=== PATIENT | male | born 1955 | race Caucasian/White ===

== ENCOUNTER 2017-04-20 09:55 | Observation (INO) | payer MEDICARE ==
[2017-04-20] MEDS ORDERED: NS 0.9% 1000 ML* 1,000 ML IV ONE (10:06)
[2017-04-20 10:15] LABS: ABS Basophils 0.1 10^3/ul (0-0.2); ABS Eosinophils 0.5 10^3/ul (0-0.6); ABS Lymphocytes 4.5 10^3/ul (1.0-4.8); ABS Monocytes 0.8 10^3/ul (0-0.8); ABS Neutrophils 4.8 10^3/ul (1.5-7.7); ABS Nucleated RBC 0 10^3/ul; Eosinophil % 5.1 % (0-6); Hematocrit 47 % (42-52); Hemoglobin 15.6 g/dl (14.0-18.0); Lymphocyte % 41.7 % (25-47); Mean Corpuscular HGB Conc 33 g/dl (31-36); Mean Corpuscular Hemoglobin 31 pg (27-31); Mean Corpuscular Volume 92 fL (80-94); Mean Platelet Volume 7 um3 (7.4-10.4); Nucleated Red Blood Cells % 0.1; Platelet Count 220 10^3/ul (150-450); Red Blood Count 5.12 10^6/ul (4.0-5.4); Red Cell Distribution Width 14 % (10.5-15); White Blood Count 10.8 10^3/ul (3.5-10.8)
--- NOTE | 2017-04-20 10:26 | RAD ---
INDICATION: Left leg weakness and inability to see out of left eye COMPARISON: None. TECHNIQUE: Contiguous axial sections of the brain were obtained from the skull base to the vertex without contrast. FINDINGS: The ventricles, cisterns and sulci are within normal limits. The swann-white matter differentiation is adequately maintained and there is no sulcal effacement. No significant focal abnormality or mass effect is present. There is no evidence for intracranial hemorrhage. No significant focal osseous abnormality is present. There is very mild mucosal thickening of the right maxillary sinus. The mastoid air cells are well aerated bilaterally. IMPRESSION: No CT evidence of acute territorial infarction or intracranial hemorrhage. Findings were reported to Dr. Quijano over the telephone at 1022 hours on April 20, 2017.
[2017-04-20 10:29] LABS: INR 0.9 (0.77-1.02)
[2017-04-20 10:30] LABS: EGFR Non-African American 66.9 (>60)
[2017-04-20] MEDS ORDERED: Aspirin Low Dose CHEW TAB* 81 MG PO ONE (10:45)
[2017-04-20] MEDS ORDERED: Iohexol 350* (CONTRAST) 500 ML MDV IV ONE (10:55)
--- NOTE | 2017-04-20 11:05 | RAD ---
INDICATION: Weakness and left eye visual impairment COMPARISON: Most recent comparison chest x-rays dated November 13, 2007 TECHNIQUE: Single AP portable view of the chest was obtained. FINDINGS: Image quality is compromised due to the relative inferiority of a portable chest x-ray. The heart and mediastinum exhibit normal size and contour. Again seen overlying the right lung apex there is an area that is mostly absent of lung markings. The morphology of this finding is consistent with a air cyst or subpleural bulla. The lungs are otherwise adequately aerated. There is no evidence of a large pleural effusion. Visualized bones are normal for the patient's age. 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 Otherwise there are no radiographically apparent acute cardiopulmonary abnormalities.
--- NOTE | 2017-04-20 11:55 | RAD ---
CPT II: CPT II Codes: 3100F INDICATION: Left leg weakness and left vision loss COMPARISON: Same day noncontrast CT of the brain TECHNIQUE: A CT angiogram of the head and neck was performed with 80 cc of Omnipaque 350. Contiguous axial sections were obtained from the thoracic inlet through the [place]. Images were reconstructed in the sagittal, coronal planes and in a 3-D volume rendered format. The distal cervical internal carotid artery diameter is used as the denominater for stenosis measurement. CTA NECK: The common and internal carotid arteries are patent without hemodynamically significant stenosis. Right: Below the bifurcation the common carotid artery measures 8 mm in short axis diameter. There is mixed attenuation atherosclerosis at the carotid bulb extending into the lower portion of the right internal carotid artery narrowing the lumen of the internal carotid artery to just under 4 mm. This corresponds to approximately 50% degree stenosis. Left: Below the carotid bifurcation the short axis diameter of the common carotid artery is 7 mm. There is mostly calcified mixed attenuation atherosclerosis at the left carotid bulb narrowing the lumen to approximately 3.6 mm in diameter. This corresponds to 50% degree stenosis. The right vertebral artery is diminutive relative to the left but patent. The vertebral arteries are patent without gross abnormality. CTA of the brain: The internal carotid, anterior and middle cerebral arteries appear are patent without high grade stenosis or occlusion. The vertebral, basilar and posterior cerebral arteries appear patent without high grade stenosis or occlusion. The [place] is complete with bilateral posterior communicating arteries identified. No focal luminal filling defect, aneurysm or vascular malformation is seen. NON-ARTERIAL FINDINGS: Corresponding to prior chest x-ray imaging there is a partially visualized large bulla at the right lung apex. IMPRESSION: 1. Mixed attenuation atherosclerosis at the bilateral carotid bulbs causes approximately 50% degree narrowing bilaterally. 2. There is no focal cervical or intracranial arterial occlusion or other acute abnormality.
[2017-04-20 12:01] LABS: Urine Appearance Clear; Urine Blood Negative (Negative); Urine Color Straw; Urine Ketones Negative (Negative); Urine Protein Negative (Negative); Urine Specific Gravity 1.013 (1.010-1.030); Urine Urobilinogen Negative (Negative)
[2017-04-20] MEDS ORDERED: Ondansetron INJ* 2 MG/ML VIAL IV PRN (13:53)
[2017-04-20] MEDS ORDERED: Acetaminophen TAB* 325 MG PO PRN (13:53)
[2017-04-20] MEDS ORDERED: LORazepam INJ* 2 MG/ML 1 ML VIAL IV PUSH PRN (15:11)
[2017-04-20] MEDS ORDERED: methylPREDNISolone SOD SUCC* 1000 MG ML VIAL IVPB ONE (15:57)
[2017-04-20] MEDS: Heparin VIAL(*) 5000 UNITS/ML VIAL (FIVE THOUSAND) SUBCUT SCH ×2 (16:02→20:42)
[2017-04-20] MEDS ORDERED: methylPREDNISolone SOD SUCC* 1,000 MG in NS 0.9% 250 ML* 250 ML IVPB ONE (17:00)
--- NOTE | 2017-04-20 17:36 | HP ---
CC: Dr. Stockton; Dr. Gonzalez * HISTORY AND PHYSICAL: DATE OF ADMISSION: 04/20/17 PRIMARY CARE PROVIDER: Dr. Stockton. ATTENDING PHYSICIAN WHILE IN THE HOSPITAL: Dr. Kristin Ramirez * (report dictated by Abraham Hendricks NP) CHIEF COMPLAINT: 1. Left eye visual loss. 2. Left leg weakness. HISTORY OF PRESENT ILLNESS: Mr. Warner is a 61-year-old male patient, who has a history of rheumatoid arthritis, has a history of hypertension, hyperlipidemia , and he is a heavy smoker. He comes in to our ER today, stating that around 9: 30 to 9:50 this morning, he had a sudden onset of left visual loss in his entire eye. He says he could see just the center like he was looking through a pinhole is what he said. It lasted for a couple of hours. Apparently, when he came into the ED, he had left leg weakness. When I asked him if he had any unilateral weakness he declined, but the ED did note that his left leg was weak. He says he just felt off, he felt lightheaded and dizzy. He says he did not have an unsteady gait. He denied any slurring of the word, denied having facial drooping. He said that his vision just was not getting any better and he knew that there was something wrong, so he came into the ER to be evaluated today. He denied having any recent change of medication. He said a couple of years ago, he stopped taking his cholesterol meds. He denies having any chest pain or shortness of breath. No palpitations. No recent fevers or chills. No rhinorrhea or sore throat. Dorota Rahul was called because he presented about an hour after his symptoms, but while he was here, his vision improved and the weakness in his leg improved, so tPA was not given, but because of the concern for possible TIA, we were asked to evaluate for admission. PAST MEDICAL HISTORY: Significant for: 1. Rheumatoid arthritis. 2. Hypertension. 3. Hyperlipidemia. PAST SURGICAL HISTORY: 1. The patient has had C-spine surgery. 2. He has had right wrist surgery. MEDICATIONS: The home meds include: 1. Metoprolol 25 mg daily. 2. Methotrexate 12.5 mg p.o. weekly. 3. Prednisone 5 mg daily. ALLERGIES TO MEDICATIONS: Include no known drug allergies. FAMILY HISTORY: His mother is still alive with no medical problems. Father had history of lung cancer. SOCIAL HISTORY: He is a smoker for about 40 years. He smoked half a pack to a pack a day. He does not drink alcohol. Surrogate decision maker is his . REVIEW OF SYSTEMS: There is no documented fever. He denied having any significant weight change. There was no double vision. There is no ear discharge. He denies having any rhinorrhea. There is no sore throat. There is no thyroid enlargement. Denied having any chest pain. There was no orthopnea. There was no nocturnal dyspnea. He denies having any abdominal discomfort. There is no dysuria, there is no frequency. He denied any seizure or loss of consciousness. No pruritus and no skin ulcerations. Review of 14 systems completed, all others negative. PHYSICAL EXAMINATION GENERAL: At this time, Mr. Warner is a 61-year-old male patient. He appears to be well nourished and well developed. He does not appear to be in any acute distress. VITAL SIGNS: Blood pressure 165/91, pulse 76, respirations 18, O2 sat 97%, temperature 98.4. HEENT: Head: Atraumatic, normocephalic. Eyes: EOMs intact. Sclerae anicteric and not pale. Throat: Oral mucosa appears to be moist. No oropharyngeal erythema. NECK: Supple. LUNGS: Clear to auscultation bilaterally. No wheezes, rales, or rhonchi. HEART: Sounds S1, S2. Regular rate and rhythm. No murmurs, rubs, or gallops. ABDOMEN: Soft, it was flat. It was nontender. The bowel sounds were present. EXTREMITIES: Pulses were 2+ throughout. He is moving all 4 extremities with 5/ 5 strength. He does have a little bit of weakness with plantar and dorsiflexion to the right foot, but he says this is chronic. Pulses were 2+ throughout and no peripheral edema. 5/5 strength. NEUROLOGIC: His speech was clear. His tongue was midline. [id number] was intact. Awake, alert, and oriented x3. Cranial nerves II through XII were intact, no gross focal deficits. His vision was intact at this point. No focal deficits were elicited on my exam. SKIN: Intact. DIAGNOSTIC STUDIES/LAB DATA: WBC of 10.8, RBC of 5.12, hemoglobin of 15.6, hematocrit of 47, platelet count of 220. INR was 0.90, PTT was 29.6. Sodium 139, potassium 3.7, chloride of 102, bicarb 27, BUN 15, creatinine 1.12, glucose 131, lactate 4.9, calcium 9.9. Total bili 0.5, AST 22, ALT 19, alk phos . Troponin 0. Albumin 4.3. His LDL was 150. Urine was negative. He did have imaging here in the ED starting with brain CT, impression: No CT evidence of acute territorial infarction or intracranial hemorrhage. He did have a CTA mixed attenuation atherosclerosis at the bilateral carotid bulb causes approximately 50% stenosis bilaterally. There is no focal cervical, intracranial arterial occlusion, or other acute abnormality. He did have a chest x-ray obtained today. 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 There was an EKG obtained today, which did show a normal sinus rhythm, rate of 74. No ST elevations or T-wave inversions. It is reviewed to the previous EKG, it does appear to be similar. Old medical records were reviewed. ASSESSMENT AND PLAN: Mr. Warner is a 61-year-old male patient, coming into the ED today with complaints of left-sided visual loss. We were asked to evaluate for admission. He will be admitted under observation status for: 1. Transient ischemic attack. At this point, Dr. Gonzalez will be evaluating the patient. He was evaluated by [facility]. I will refer you to their consult for details. The plan will be to go ahead and put the patient on aspirin, possibly Plavix, but Dr. Gonzalez will evaluate. We will go ahead and get him back on his statin. Check lipids in the morning. A1c, neuro checks every 2 hours, get an echo with bubble study. In addition to this, MRI of the brain when it is available. 2. Hypertension in the setting of possible transient ischemic attack versus an acute stroke. We will go ahead and allow for permissive hypertension. We will hold his beta sly. 3. Hyperlipidemia. We will continue his statin therapy, which he had stopped about a year ago. We will check his lipid panel. 4. Rheumatoid arthritis. Continue meds as prescribed. 5. DVT prophylaxis. He is high risk. Place him on heparin subcu. 6. Code status. Full code. 7. Fluid, electrolytes, and nutrition. He can have a regular diet. TIME SPENT: On the admission was 60 minutes, greater than half the time was spent [id number] with the patient obtaining my history and physical; the other half time was spent going over the plan of care with the patient and implementing plan of care. I did discuss the plan of care with my attending, Dr. Ramirez; she is in agreement. ABRAHAM HENDRICKS, NENA [id number]/CPS #: [id number] [facility]
--- NOTE | 2017-04-20 18:16 | ED ---
Didier Clark Nikita, scribed for Jose Quijano MD on 04/20/17 at 1012 . Neurological HPI - HPI Summary HPI Summary: This patient is a 61 year old M presenting to ED with a chief complaint of possible CVA since 914. The patient rates the pain 0/10 in severity. Symptoms aggravated by nothing. Symptoms alleviated by nothing. Patient reports dizziness , loss of vision in the L eye, HTN, generalized weakness, and CP. Patient denies numbness. RACHEL FIGUEROA called at 1004 - History of Current Complaint Stated Complaint: POSSIBLE HEART ATTACK Hx Obtained From: Patient Onset/Duration: Sudden Onset, Started hours ago, Still Present Timing: Constant Current Severity: None Pain Intensity: 0 Pain Scale Used: 0-10 Numeric Character: Other: - Patient reports dizziness, loss of vision in the L eye, HTN , generalized weakness, and CP. Patient denies numbness. Aggravating: Nothing Alleviating: Nothing - Allergy/Home Medications Allergies/Adverse Reactions: Allergies Allergy/AdvReac Type Severity Reaction Status Date / Time No Known Allergies Allergy Verified 04/20/17 10:21 Home Medications: Home Medications Methotrexate TAB* 12.5 mg PO WEEKLY 04/20/17 [History Confirmed 04/20/17] Metoprolol Tartrate TAB* [Lopressor TAB*] 25 mg PO DAILY 04/20/17 [History Confirmed 04/20/17] predniSONE TAB* [Deltasone TAB*] 5 mg PO DAILY 04/20/17 [History Confirmed 04/20] PMH/Surg Hx/FS Hx/Imm Hx Cardiovascular History: Reports: Hx Hypertension, Hx Myocardial Infarction Musculoskeletal History: Reports: Hx Rheumatoid Arthritis - Family History Known Family History: Negative: Cardiac Disease, Hypertension, Diabetes - Social History Alcohol Use: None Hx Substance Use: No Hx Tobacco Use: Yes Review of Systems Positive: Other - loss of vision in L eye Positive: Chest Pain, Other - HTN Neurological: Other - dizziness; denies numbness Positive: Weakness - generalized All Other Systems Reviewed And Are Negative: Yes Physical Exam - Summary Physical Exam Summary: RACHEL FIGUEROA called at 1004 VITAL SIGNS: Reviewed. GENERAL: ~Patient is a well-developed and nourished MALE who is lying comfortable in the stretcher. ~Patient is not in any acute respiratory distress. HEAD AND FACE: No signs of trauma. ~No ecchymosis, hematomas or skull depressions. No sinus tenderness. EYES: Pt cannot see out of the L eye. EARS: Hearing grossly intact. Ear canals and tympanic membranes are within normal limits. MOUTH: Oropharynx within normal limits. NECK: Supple, trachea is midline, no adenopathy, no JVD, no carotid bruit, no c- spine tenderness, neck with full ROM. No meningeal signs, no Kernig's or brudzinskis signs. CHEST: Symmetric, no tenderness at palpation LUNGS: Clear to auscultation bilaterally. No wheezing or crackles. CVS: Regular rate and rhythm, S1 and S2 present, no murmurs or gallops appreciated. ABDOMEN: Soft, non-tender. No signs of distention. No rebound no guarding, and no masses palpated. Bowel sounds are normal. EXTREMITIES: Slight weakness in the L leg, no edema, no cyanosis or clubbing. NEURO: Alert and oriented x 3. No acute neurological deficits. Speech is normal and follows commands. SKIN: Dry and warm GCS: 15 Triage Information Reviewed: Yes Vital Signs On Initial Exam: Initial Vitals Temp Pulse Resp BP Pulse Ox 98.4 F 79 16 197/80 96 04/20/17 10:02 04/20/17 10:02 04/20/17 10:02 04/20/17 10:02 04/20/17 10:02 Vital Signs Reviewed: Yes Diagnostics - Vital Signs Vital Signs Temp Pulse Resp BP Pulse Ox 04/20/17 13:00 51 20 124/80 95 04/20/17 12:30 58 21 126/76 95 04/20/17 12:00 64 18 147/79 97 04/20/17 11:30 74 19 141/106 97 04/20/17 11:00 61 15 165/91 96 04/20/17 10:30 66 17 165/88 95 04/20/17 10:20 73 22 97 04/20/17 10:19 96 04/20/17 10:18 167/96 04/20/17 10:02 98.4 F 79 16 197/80 96 - Laboratory Lab Results: Lab Results 04/20/17 04/20/17 04/20/17 Range/Units 10:07 10:07 10:07 WBC 10.8 (3.5-10.8) 10^3/ul RBC 5.12 (4.0-5.4) 10^6/ul Hgb 15.6 (14.0-18.0) g/dl Hct 47 (42-52) % MCV 92 (80-94) fL MCH 31 (27-31) pg MCHC 33 (31-36) g/dl RDW 14 (10.5-15) % Plt Count 220 (150-450) 10^3/ul MPV 7 L (7.4-10.4) um3 Neut % (Auto) 44.5 (38-83) % Lymph % (Auto) 41.7 (25-47) % Highland % (Auto) 7.7 (1-9) % Eos % (Auto) 5.1 (0-6) % Baso % (Auto) 1.0 (0-2) % Absolute Neuts (auto) 4.8 (1.5-7.7) 10^3/ul Absolute Lymphs (auto) 4.5 (1.0-4.8) 10^3/ul Absolute Monos (auto) 0.8 (0-0.8) 10^3/ul Absolute Eos (auto) 0.5 (0-0.6) 10^3/ul Absolute Basos (auto) 0.1 (0-0.2) 10^3/ul Absolute Nucleated RBC 0 10^3/ul Nucleated RBC % 0.1 INR (Anticoag Therapy) 0.90 (0.77-1.02) APTT 29.6 (26.0-36.3) seconds Sodium 139 (133-145) mmol/L Potassium 3.7 (3.5-5.0) mmol/L Chloride 102 (101-111) mmol/L Carbon Dioxide 27 (22-32) mmol/L Anion Gap 10 (2-11) mmol/L BUN 15 (6-24) mg/dL Creatinine 1.12 (0.67-1.17) mg/dL Est GFR ( Amer) 86.0 (>60) Est GFR (Non-Af Amer) 66.9 (>60) BUN/Creatinine Ratio 13.4 (8-20) Glucose 131 H (70-100) mg/dL POC Glucose (mg/dL) (70-100) mg/dL Lactic Acid (0.5-2.0) mmol/L Calcium 9.9 (8.6-10.3) mg/dL Total Bilirubin 0.50 (0.2-1.0) mg/dL AST 23 (13-39) U/L ALT 19 (7-52) U/L Alkaline Phosphatase 78 (34-104) U/L Troponin I 0.00 (<0.04) ng/mL Total Protein 8.3 (6.4-8.9) g/dL Albumin 4.3 (3.2-5.2) g/dL Globulin 4.0 (2-4) g/dL Albumin/Globulin Ratio 1.1 (1-3) Triglycerides 120 mg/dL Cholesterol 217 mg/dL LDL Cholesterol 150 mg/dL HDL Cholesterol 42.9 mg/dL Urine Color Urine Appearance Urine pH (5-9) Ur Specific [place]ville (1.010-1.030) Urine Protein (Negative) Urine Ketones (Negative) Urine Blood (Negative) Urine Nitrate (Negative) Urine Bilirubin (Negative) Urine Urobilinogen (Negative) Ur Leukocyte Esterase (Negative) Urine Glucose (Negative) Blood Type Antibody Screen 04/20/17 04/20/17 04/20/17 Range/Units 10:07 10:07 10:11 WBC (3.5-10.8) 10^3/ul RBC (4.0-5.4) 10^6/ul Hgb (14.0-18.0) g/dl Hct (42-52) % MCV (80-94) fL MCH (27-31) pg MCHC (31-36) g/dl RDW (10.5-15) % Plt Count (150-450) 10^3/ul MPV (7.4-10.4) um3 Neut % (Auto) (38-83) % Lymph % (Auto) (25-47) % Highland % (Auto) (1-9) % Eos % (Auto) (0-6) % Baso % (Auto) (0-2) % Absolute Neuts (auto) (1.5-7.7) 10^3/ul Absolute Lymphs (auto) (1.0-4.8) 10^3/ul Absolute Monos (auto) (0-0.8) 10^3/ul Absolute Eos (auto) (0-0.6) 10^3/ul Absolute Basos (auto) (0-0.2) 10^3/ul Absolute Nucleated RBC 10^3/ul Nucleated RBC % INR (Anticoag Therapy) (0.77-1.02) APTT (26.0-36.3) seconds Sodium (133-145) mmol/L Potassium (3.5-5.0) mmol/L Chloride (101-111) mmol/L Carbon Dioxide (22-32) mmol/L Anion Gap (2-11) mmol/L BUN (6-24) mg/dL Creatinine (0.67-1.17) mg/dL Est GFR ( Amer) (>60) Est GFR (Non-Af Amer) (>60) BUN/Creatinine Ratio (8-20) Glucose (70-100) mg/dL POC Glucose (mg/dL) 122 H (70-100) mg/dL Lactic Acid 4.9 H* (0.5-2.0) mmol/L Calcium (8.6-10.3) mg/dL Total Bilirubin (0.2-1.0) mg/dL AST (13-39) U/L ALT (7-52) U/L Alkaline Phosphatase (34-104) U/L Troponin I (<0.04) ng/mL Total Protein (6.4-8.9) g/dL Albumin (3.2-5.2) g/dL Globulin (2-4) g/dL Albumin/Globulin Ratio (1-3) Triglycerides mg/dL Cholesterol mg/dL LDL Cholesterol mg/dL HDL Cholesterol mg/dL Urine Color Urine Appearance Urine pH (5-9) Ur Specific [place] (1.010-1.030) Urine Protein (Negative) Urine Ketones (Negative) Urine Blood (Negative) Urine Nitrate (Negative) Urine Bilirubin (Negative) Urine Urobilinogen (Negative) Ur Leukocyte Esterase (Negative) Urine Glucose (Negative) Blood Type A Negative Antibody Screen Negative 04/20/17 Range/Units 11:52 WBC (3.5-10.8) 10^3/ul RBC (4.0-5.4) 10^6/ul Hgb (14.0-18.0) g/dl Hct (42-52) % MCV (80-94) fL MCH (27-31) pg MCHC (31-36) g/dl RDW (10.5-15) % Plt Count (150-450) 10^3/ul MPV (7.4-10.4) um3 Neut % (Auto) (38-83) % Lymph % (Auto) (25-47) % Highland % (Auto) (1-9) % Eos % (Auto) (0-6) % Baso % (Auto) (0-2) % Absolute Neuts (auto) (1.5-7.7) 10^3/ul Absolute Lymphs (auto) (1.0-4.8) 10^3/ul Absolute Monos (auto) (0-0.8) 10^3/ul Absolute Eos (auto) (0-0.6) 10^3/ul Absolute Basos (auto) (0-0.2) 10^3/ul Absolute Nucleated RBC 10^3/ul Nucleated RBC % INR (Anticoag Therapy) (0.77-1.02) APTT (26.0-36.3) seconds Sodium (133-145) mmol/L Potassium (3.5-5.0) mmol/L Chloride (101-111) mmol/L Carbon Dioxide (22-32) mmol/L Anion Gap (2-11) mmol/L BUN (6-24) mg/dL Creatinine (0.67-1.17) mg/dL Est GFR ( Amer) (>60) Est GFR (Non-Af Amer) (>60) BUN/Creatinine Ratio (8-20) Glucose (70-100) mg/dL POC Glucose (mg/dL) (70-100) mg/dL Lactic Acid (0.5-2.0) mmol/L Calcium (8.6-10.3) mg/dL Total Bilirubin (0.2-1.0) mg/dL AST (13-39) U/L ALT (7-52) U/L Alkaline Phosphatase (34-104) U/L Troponin I (<0.04) ng/mL Total Protein (6.4-8.9) g/dL Albumin (3.2-5.2) g/dL Globulin (2-4) g/dL Albumin/Globulin Ratio (1-3) Triglycerides mg/dL Cholesterol mg/dL LDL Cholesterol mg/dL HDL Cholesterol mg/dL Urine Color Straw Urine Appearance Clear Urine pH 6.0 (5-9) Ur Specific [place] 1.013 (1.010-1.030) Urine Protein Negative (Negative) Urine Ketones Negative (Negative) Urine Blood Negative (Negative) Urine Nitrate Negative (Negative) Urine Bilirubin Negative (Negative) Urine Urobilinogen Negative (Negative) Ur Leukocyte Esterase Negative (Negative) Urine Glucose Negative (Negative) Blood Type Antibody Screen Result Diagrams: 04/20/17 10:07 04/20/17 10:07 Lab Statement: Any lab studies that have been ordered have been reviewed, and results considered in the medical decision making process. - Radiology CXR Radiology Interpretation Completed By: Radiologist - Chronic right lung apex bulla or large cyst similar in appearance to the November 13, 2007 chest x-ray. Otherwise there are no radiographically apparent acute cardiopulmonary abnormalities. ED physician has reviewed this radiology report. - CT Brain CT CT Interpretation Completed By: Radiologist - Negative for any acute pathology. ED physician has reviewed this radiology report. CTA Head/Neck CT Interpretation Completed By: Radiologist - 1. Mixed attenuation atherosclerosis at the bilateral carotid bulbs causes approximately 50% degree narrowing bilaterally. 2. There is no focal cervical or intracranial arterial occlusion or other acute abnormality. ED physician has reviewed this radiology report. 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 Facial Paresis-Pt to Smile & Close Eyes or Grimace Symmetry: Normal/Symmetrical Motor Function - Right Arm: No Drift-Holds 10 Seconds Motor Function - Left Arm: No Drift-Holds 10 Seconds Motor Function - Right Leg: No Drift-Holds 10 Seconds Motor Function - Left Leg: No Drift-Holds 10 Seconds Limb Ataxia-Must be out of Proportion to Weakness Present: Absent Sensory (Use Pinprick to Test Arms/Legs/Trunk/Face): Normal Best Language (Describe Picture, Name Items): No Aphasia Dysarthria (Read Several Words): Normal Extinction and Inattention: No Abnormality Total Score: 2 Re-Evaluation - Re-Evaluation First Eval Re-Evaluation Time: 10:38 Comment: The pt's weakness is gone. The pt can see a bit more and the visual acuity of the R is 20/30, for the L is 20/200, and bilateral is 20/25. Second Eval Re-Evaluation Time: 12:50 Change: Improved Comment: The pt is feeling a lot better. Course/Dx - Course Assessment/Plan: RACHEL FIGUEROA called at 1004. This patient is a 61 year old M presenting to ED with a chief complaint of possible CVA since 914. Initially, as soon as the pt arrived, a code shree was called since he had neurological deficit. A quick NIH score was done and was equal to 2. Test results are without significant abnormalities except lactic acid of 4.9 and glucose 131. Urinalysis is negative for a UTI. Discussed with Dr. Harris from [facility] who requested a CTA and a teleconference with the pt. After teleconference at 1127 and CTA results, he recommended for pt to be admitted to the hospital here. No TPA since sx are improving. ASA and simvastatin, a neuro consult, and MRI without contrast and Q4 hours neuro checks. I discussed with Dr. Gonzalez who will consult for the patient. Discussed with Dr. Robin who accepted the patient for admission. Patient symptoms are improving. He is hemodynamically stable, alert and oriented x3. - Differential Dx Differential Diagnoses Neuro: Positive: Benign Paroxysmal Positional Vertigo, Cerebrovascular Accident, Seizure Disorder, Transient Ischemic Attack, Other - amaurosis fugax - Diagnoses Provider Diagnoses: Amaurosis fugax During the Visit The Following Alert/Code Occurred: Rachel Kaye - called at 1004 - Physician Notifications Discussed Care Of Patient With: Gio Harris Time Discussed With Above Provider: 10:39 Instructed by Provider To: Other - Consulted Dr. Harris in [facility] who says to take a CTA of the head and neck. No TPA at this time. Dr. Quijano will call back with the results. Only ASA at this point. Consulted Dr. Harris at 1255 who wants to admit the pt to the hospitalist, give the pt ASA and simvastatin, a neuro consult, and MRI without contrast and Q4 hours neuro checks. No TPA. Consulted Dr. Robin at 1312 who accepts the pt for admission. - Critical Care Time Critical Care Time: 75-104 min Discharge - Discharge Plan Condition: Stable Disposition: ADMITTED TO [facility] documentation as recorded by the Didier chery Nikita accurately reflects the service I personally performed and the decisions made by , Jose Quijano MD.
--- NOTE | 2017-04-21 01:26 | CONS ---
NEUROLOGY CONSULTATION: DATE OF CONSULT: 04/20/17 LOCATION: He is in room 451. REFERRING PROVIDER: Abraham Hendricks NP CHIEF COMPLAINT: Transient visual loss. HISTORY OF PRESENT ILLNESS: Otto Warner is a 61-year-old right-handed man who was in his usual state of health this morning at about 9 o'clock when he noted visual loss in his left eye. It came on fairly abruptly or at least over a couple of minutes and resulted in almost a pinhole vision out of his left eye. It was his left eye only and he could see perfectly well out of his right eye. It gradually improved. He came into the emergency room. He still had some blurriness of his vision, but it was much better than when it started. Over the course of about 2 hours, it was much better. However, as I evaluated him approximately 5 to 6 hours after onset of symptoms, he said it is still not back to normal. It had been fluctuating on and off for the last several hours. At first, he said there was some blurriness of vision in his right upper quadrant or more towards the center, not completely into the periphery. Over multiple evaluations over the last hour and a half to 2 hours, he said at times he feels his vision is normal and at times he feels there is some blurriness in the right paracentral area. Again, it only involves his left eye and his right eye feels fine. He has not had any problems with headaches or eye pain. No jaw pain or pain with chewing. He has not had any recent sweats, chills, or weight loss. He has had no change in his general health recently. He is on chronic prednisone therapy 5 mg a day which has been on for over year for rheumatoid arthritis and also takes methotrexate for the same. He has hypertension, he smokes, and although he has no history of diabetes, his glucose is 131 at presentation. He also has hyperlipidemia based on his labs, but he has not been on any medicine at home for that. PAST MEDICAL HISTORY: Notable for chest pain, which was evaluated with a cardiac catheterization many years ago with mild circumflex disease. He has rheumatoid arthritis, chronic back pain without footdrop, ongoing tobacco smoker. He has a history of gastroesophageal reflux. He has had cervical spine surgery. MEDICATIONS: Medications at home include: 1. Metoprolol 25 mg p.o. daily. 2. Methotrexate 12.5 mg p.o. weekly. 3. Prednisone 5 mg daily. 4. He used to be on statin, but he has not been taking it for years. 5. He used to take daily aspirin, but has not take that recently either. ALLERGIES: He does not have any drug allergies. FAMILY HISTORY: Noncontributory. REVIEW OF SYSTEMS: Negative for headache, jaw pain, pain with chewing, scalp tenderness, eye pain, shortness of breath, recent chest pain, new intestinal problems, weight loss, difficulty walking. He has chronic weakness of ankle dorsiflexion on 1 side attributed to his chronic back problems. PHYSICAL EXAM: He is well nourished and well hydrated. He does not look to be in any discomfort. Temperature is 98.2 by temporal scan, blood pressure running about 150/100, heart rate in the 60s and regular, respiratory rate is 19 , and oxygen saturation is 96% on room air. Lungs are clear bilaterally. Heart is in a regular rate and rhythm without murmurs. Carotid pulses are symmetrical and there are no bruits. There is no temporal tenderness. Neck is supple. Neurologic exam: Pupils are equal in dim room light at about 4 mm. The right constricts briskly to about 2 mm and the left exhibits a prominent afferent pupillary defect. It then constricts down to about 2.5 mm. There is no ptosis. Eye movements are normal. Funduscopic exam revealed some mild left temporal disc pallor. I do not see any embolic phenomena, hemorrhages, or papilledema. Visual stiles in the right eye are full to confrontation. In the left eye, they are likewise full to confrontation with some blurriness in the right paracentral area. He is able to read normal size print out of either eye independently but he has to search for it when reading OS only. Facial musculature is symmetric and facial sensation to light touch and temperature is symmetric. Palate and tongue appear normal and there is no dysarthria. Hearing is intact bilaterally and neck strength is intact. Motor exam reveals normal muscle, tone, and strength in the limbs proximally and distally other than mild right ankle dorsiflexor weakness. Sensory exam in the limbs is normal. Reflexes are symmetric in the upper extremities and knees and grade 1 at the ankles. Plantar responses are flexor bilaterally. There is no rest, sustention, or action tremor. He is alert and oriented and an excellent detailed historian. Memory is intact and language is fluent. He has good attention, concentration, and fund of knowledge. DIAGNOSTIC STUDIES/LAB DATA: Includes normal chemistry profile other than nonfasting glucose of 131, cholesterol 217, LDL 150. CRP is pending. CBC is within normal limits, sedimentation rate just came back at 27. Urinalysis is unremarkable. CT angiogram of the brain was obtained and I reviewed the images. There is bilateral atherosclerotic disease of the carotid bulbs with estimation of about 50% stenosis bilaterally. CT scan of the brain images were likewise reviewed and looks to be a normal CT of the brain which was the interpretation. Chest x- ray interpreted as chronic right lung apex bulla. EKG reveals sinus rhythm and a normal EKG. 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 His sedimentation rate is only 27, but he is on low dose prednisone. He does not have any eye pain. I am not sure if this is arteritic or nonarteritic. There is no ophthalmology sales correspondent for the hospital. I am going to speak with a new ophthalmology at the [facility] to run the case by them. My inclination would be to give him 1000 mg of Solu-Medrol and treat with antiplatelet therapy simultaneously. I have examined the patient multiple times over the last 90 minutes and so awaiting further input from new ophthalmology consultation. Addendum: His CRP came back normal at 3. His vision further improved over repeated exams such that his scotoma was vague and intermittent. His fundascopic exam remained normal and his APD improved with with repeated exams over several hours such that by about 1730 hours it was gone. I spoke with the sales correspondent Neuro-ophthamologist at for general advice. I decided not to give him steroids as nonarteritic ION seems the likely diagnosis and decided to treat with ASA only and keep him hydrated and not acutely treat his BP. I explained this to Otto and his who came in later in the afternoon. 120 minutes was spent over repeated evaluations in direct care of the patient. [id number]/[facility] #: [id number] [facility] MEDICAL CENTERRosemary
[2017-04-21] MEDS: Heparin VIAL(*) 5000 UNITS/ML VIAL (FIVE THOUSAND) SUBCUT SCH (04:55)
[2017-04-21 05:43] LABS: ABS Basophils 0.1 10^3/ul (0-0.2); ABS Eosinophils 0.4 10^3/ul (0-0.6); ABS Lymphocytes 2.5 10^3/ul (1.0-4.8); ABS Monocytes 0.5 10^3/ul (0-0.8); ABS Nucleated RBC 0 10^3/ul; Eosinophil % 4.8 % (0-6); Hematocrit 42 % (42-52); Hemoglobin 14.1 g/dl (14.0-18.0); Lymphocyte % 33.6 % (25-47); Mean Corpuscular HGB Conc 33 g/dl (31-36); Mean Corpuscular Hemoglobin 30 pg (27-31); Mean Corpuscular Volume 91 fL (80-94); Mean Platelet Volume 8 um3 (7.4-10.4); Nucleated Red Blood Cells % 0.1; Platelet Count 177 10^3/ul (150-450); Red Blood Count 4.66 10^6/ul (4.0-5.4); Red Cell Distribution Width 14 % (10.5-15); White Blood Count 7.5 10^3/ul (3.5-10.8)
[2017-04-21] MEDS ORDERED: Aspirin Low Dose CHEW TAB* 81 MG PO SCH (09:00)
[2017-04-21] MEDS ORDERED: predniSONE TAB* 5 MG PO SCH (09:00)
--- NOTE | 2017-04-21 09:58 | PN ---
Subjective Date of Service: 04/21/17 Interval History: Mr. Warner reports feeling much today and is vision is much improved. He denies any other complaint and is eager for discharge to home. Objective Active Medications: Acetaminophen (Tylenol Tab*) 650 mg PO Q4H PRN Aspirin (Aspirin Low Dose Tab*) 81 mg PO DAILY [facility] Heparin Sodium (Porcine) (Heparin Vial(*)) 5,000 units SUBCUT Q8HR CHRISSY Ondansetron HCl (Zofran Inj*) 4 mg IV Q6H PRN Prednisone (Deltasone Tab*) 5 mg PO DAILY [facility] Simvastatin (Zocor(Nf)) 40 mg PO ONCE ONE Simvastatin (Zocor(Nf)) 40 mg PO BEDTIME [facility] Oxygen Devices in Use Now: None Appearance: Male sitting up in bed in NAD Eyes: No Scleral Icterus Ears/Nose/Mouth/Throat: Mucous Membranes Moist Neck: Trachea Midline Respiratory: Symmetrical Chest Expansion and Respiratory Effort, Clear to Auscultation Cardiovascular: NL Sounds; No Murmurs; No JVD, No Edema Abdominal: NL Sounds; No Tenderness; No Distention Lymphatic: No Cervical Adenopathy Extremities: No Edema Skin: No Rash or Ulcers Neurological: Alert and Oriented x 3, NL Muscle Strength and Tone, - - Decreased pupillary constriction to left eye Nutrition: Taking PO's Result Diagrams: 04/21/17 05:26 04/21/17 05:26 Additional Lab and Data: Vital Signs: Temp Pulse Resp BP Pulse Ox 98.2 F 56 18 126/70 96 04/21/17 03:22 04/21/17 03:22 04/21/17 03:22 04/21/17 03:22 04/21/17 08:04 Assess/Plan/Problems-Billing Assessment: Mr. Clements is a 61 yo male with a PMH of RA, HTN, and HLD who was admitted on 04/20/17 with transient left visual field loss. - Patient Problems (1) Optic neuritis, left Comment: - Patient states his vision is back to normal but he does still have an afferent pupillary defect. - Appreciate consultation from neurology. 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 No evidence of giant cell arteritis given essentially negative ESR ( slightly elevated but has history of RA on prednisone) and CRP. - Plan to treat with aspirin and good control of BP, hyperlipidemia. - Patient to follow up with opthamology outpatient early this week. (2) Hypertension Comment: - SBP 120-160. - Start low dose amlodipine with goal BP < 130. (3) Hyperlipidemia Comment: - Chol < 200, LDL > 130 - Continue simvastatin, started on admission. (4) Rheumatoid arthritis Comment: - Continue prednisone. (5) DVT prophylaxis Comment: - Heparin SQ. (6) Full code status Comment: Status and Disposition: OBV. Discharge to home.
[2017-04-21 11:22] VITALS: BP 126/93
[2017-04-21] MEDS ORDERED: Simvastatin TAB(NF) 20 MG TAB PO ONE (12:53)
[2017-04-21] MEDS ORDERED: SIMVASTATIN 20 MG PO SCH (21:00)
--- NOTE | 2017-04-21 22:00 | CONS ---
FOLLOWUP NEUROLOGY CONSULTATION: DATE OF FOLLOWUP: 04/21/17 HOSPITALIST: Susanna Abad NP LOCATION: He is an inpatient in room 451. CHIEF COMPLAINT: Transient visual loss. INTERVAL HISTORY: Since yesterday, Mr. Warner feels that his vision is back to normal. He has not noticed any scotomas in his left eye. He has no difficulty reading or seeing the television monitor. He has no eye pain or any other symptoms. MEDICATIONS: Reviewed and he is on: 1. Aspirin 81 mg p.o. daily. 2. Heparin 5000 units subcu q.8 hours. 3. Prednisone 5 mg p.o. daily. 4. Simvastatin 40 mg p.o. daily. PHYSICAL EXAMINATION: He is well nourished and well hydrated. Temperature 98.2 orally, blood pressure 126/70, heart rate in the 50s and 60s and regular. Neurological exam, pupils react equally with a very subtle left afferent pupillary defect. Eye movements are full. There is no ptosis. Visual stiles are full. Funduscopic exam reveals sharp discs bilaterally with perhaps a little bit of optic disc pallor in the temporal portion of the left optic disc. There is no disc edema. I do not see any hemorrhages. He is alert and oriented. Memory is intact and language is fluent. LABORATORY DATA: Laboratory data is from yesterday, mainly where sedimentation rate was 27 and CBC was otherwise normal. A repeat CBC this morning is normal as well. Chemistry profile today is normal other than a glucose of 110, hemoglobin A1c came back borderline at 6%. His CRP yesterday was normal at 3.6. Cholesterol was repeated this morning is now 190. LDL is still elevated at 135. 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 He has resolved spontaneously perhaps with the addition of aspirin. He needs to see an clinical cytogeneticist, but none are space and [employer] this weekend. I think he can go home on aspirin at this point and I will ask my staff to call around and see where we can get him in as soon as possible tomorrow for ophthalmological evaluation. Our plan is to see him in followup in my office as well. [id number]/[facility] #: [id number] MTDD
--- NOTE | 2017-04-22 01:18 | DS ---
CC: Dr. Ren * DISCHARGE SUMMARY: DATE OF ADMISSION: 04/20/17 DATE OF DISCHARGE: 04/20/17 ATTENDING PHYSICIAN: Randal Green MD * (dictation provided by Susanna Abad NP). PRIMARY DIAGNOSIS: Nonarteritic ischemic optic neuritis. SECONDARY DIAGNOSES: 1. Hypertension. 2. Hyperlipidemia. 3. Rheumatoid arthritis. 4. Chronic back pain with footdrop. 5. Ongoing smoker. 6. Gastroesophageal reflux disease. 7. History of cervical spine surgery. MEDICATIONS AT THE TIME OF DISCHARGE: 1. Aspirin 81 mg p.o. daily. 2. Simvastatin 40 mg p.o. daily. 3. Metoprolol 25 mg p.o. daily. 4. Methotrexate 12.5 mg p.o. weekly. 5. Prednisone 5 mg p.o. daily. HOSPITAL COURSE: Mr. Warner is a 61-year-old male with past medical history as mentioned above, who presented to the hospital on 04/20/17 with concern for transient visual field loss. Please see the dictated H and P from Abraham Hendricks for complete details. In brief, the patient states that he had the abrupt onset of loss of vision that is described as a pinhole visual field to the left eye. In the emergency room, this had resolved, but he had blurriness into the right paracentral area of the visual field. He denied any other symptoms and was not seen to have any other neurological deficits. Mr. Warner had a CT of the brain, which showed the following: "No CT evidence of acute territorial infraction or intracranial hemorrhage." He had a chest x- ray that showed the following: "Chronic right lung apex bullae or large cyst similar in appearance to the 11/13/07 chest x-ray." The patient had a head and neck CTA, which showed "mixed attenuation atherosclerosis at the bilateral carotid bulbs causes approximately 50% degree narrowing bilaterally." Mr. Warner was seen in consultation by Dr. Gonzalez from Neurology and I refer you to his note for complete details. However, his impression was that the patient likely had an ischemic optic neuropathy. He is initially concerned perhaps this was a giant cell arteritis, but based on his essentially low ESR of 27 and low CRP, he did not think that this was arteritic in nature and therefore, no high dose steroids were indicated. The suspicion is that he has nonarteritic ischemic optic neuritis secondary to risk factors of hypertension, hyperlipidemia, and smoking. Mr. Warner is being discharged to home. He is being resumed on aspirin 81 mg daily. He is also started on simvastatin 40 mg p.o. daily. His lipid profile shows that his cholesterol is greater than 200 and his LDL is greater than 130. He has no evidence of diabetes with a hemoglobin A1c of 6.0. He is reported to be a continued smoker and smoking cessation counseling was given. Mr. Warner is to follow up with Ophthalmology. Dr. Gonzalez's office should be calling the patient for an appointment and also be following up with his primary care provider. DISPOSITION: Home. DIET: Low fat, low salt. ACTIVITY: As tolerated. FOLLOWUP PLANS: Please follow up with ophthalmology appointment. TIME SPENT: Approximately 60 minutes were spent on the discharge of this patient, more than half time spent with the patient at the bedside reviewing the events leading up to this hospitalization, performing the physical examination, and reviewing my plan of care. SUSANNA ABAD NP [id number]/[facility] #: [id number] SAI
== END 2017-04-21 11:56 | disposition home or self-care (01) ==
LOC: ED 09:55 → MEDTELE 13:14
PROVIDERS: ADMIT Internal Medicine; ATTEND Internal Medicine
DX: G45.3 Amaurosis fugax (principal); R42 Dizziness and giddiness; I10 Essential (primary) hypertension; R07.9 Chest pain, unspecified
CPT/HCPCS: 36415; 70450; 70496; 70498; 71045; 80048; 80053; 80061; 81003; 83036; 83605; 84484; 85025; 85610; 85652; 85730; 86141; 86850; 86900; 86901; 93005; 94760; 99285; 99406; A9270-GY; G0378; J1644; J2930; J7512; Q9967